=== PATIENT | male | born 1970 | race Caucasian/White ===

== ENCOUNTER 2016-05-06 23:14 | Emergency (ER) | payer SELFPAY ==
[~2016-05-06] VITALS: Ht 190.5 cm; Wt 123.3 kg
[2016-05-06 23:17] VITALS: BP 147/104
[2016-05-07] MEDS ORDERED: MOTRIN600 MG PO (01:30)
[2016-05-07] MEDS ORDERED: KEFLEX500 MG PO (01:30)
[2016-05-07] MEDS ORDERED: NORCO 5/3251 TABLET PO (01:30)
== END 2016-05-07 01:47 | disposition home or self-care (01) ==
LOC: EME 23:14
PROC: 0HQQXZZ Repair Finger Nail, External Approach (ICD-10-PCS; principal; 2016-05-07)
DX: L60.0 Ingrowing nail (principal); L03.012 Cellulitis of left finger
CPT/HCPCS: 99281; 99283; S0020